=== PATIENT | female | born 1960 | race Two or more races ===

== ENCOUNTER 2017-05-06 21:13 | Emergency (ER) | payer OTHER ==
--- NOTE | 2017-05-06 22:31 | EDPHY ---
H & P Stated Complaint: pt c/o high bp/cifuentes/dizziness x 2 days Time Seen by Provider: 05/06/17 22:12 HPI/ROS: Family members provide Ukrainian interpretation per their request. They have declined superintendent operating services. HPI The patient presents with headache and elevated blood pressures for the last 2 days. The patient has a known history of hypertension for which she takes lisinopril. Her dose was changed, likely lowered in January of 2017. Her usual blood pressures are 130/85. However when she checked her blood pressure today at the drug store it was 166/95. Yesterday she noticed a global aching headache associated with redness of her conjunctiva. She thought this was a sign that her blood pressure was high. She did not have any vision changes, nausea or vomiting. She took Motrin and her headache improved. Today, she has developed right-sided occipital headache which is approximately 2 to 3/10 in severity. This is a throbbing pain. She does report she fell asleep on the couch prior to her pain starting and was flexing her neck toward his the right. She does have a history of subarachnoid hemorrhage in 2008.. REVIEW OF SYSTEMS Constitutional: No fever, no chills. Eyes: No discharge. ENT: No sore throat. Cardiovascular: No chest pain, no palpitations. Respiratory: No cough, no shortness of breath. Gastrointestinal: No abdominal pain, no vomiting. Genitourinary: No hematuria. Musculoskeletal: No back pain. Skin: No rashes. Neurological: Positive for headache. PMHx: Hypertension, history of subarachnoid hemorrhage Soc Hx: Lives at home with family PHYSICAL General Appearance: Alert, no distress Eyes: Pupils equal and round no pallor or injection ENT, Mouth: Mucous membranes moist Respiratory: There are no retractions, lungs are clear to auscultation Cardiovascular: Regular rate and rhythm Gastrointestinal: Abdomen is soft and non-tender, no masses, bowel sounds normal Neurological: A&O, cranial nerves 2-12 intact, 5/5 strength in upper and lower extremities which is symmetric, normal finger to nose test Skin: Warm and dry, no rashes Musculoskeletal: Neck is supple non tender Extremities: symmetrical, full range of motion Psychiatric: Patient is oriented X 3, there is no agitation Source: Patient Exam Limitations: No limitations - Medical/Surgical History Hx Asthma: No Hx Chronic Respiratory Disease: No Hx Diabetes: No Hx Cardiac Disease: Yes Hx Renal Disease: No Hx Cirrhosis: No Hx Alcoholism: No Hx HIV/AIDS: No Hx Splenectomy or Spleen Trauma: No Other PMH: ; r breast biopsy; 2009 cerebral aneurysm, hypertension - Social History Smoking Status: Former smoker Constitutional: Initial Vital Signs Temperature (C) 36.8 C 05/06/17 21:34 Heart Rate 80 05/06/17 21:34 Respiratory Rate 16 05/06/17 21:34 Blood Pressure 165/86 H 05/06/17 21:34 O2 Sat (%) 97 05/06/17 21:34 O2 Delivery Mode Room Air Allergies/Adverse Reactions: No Known Allergies Allergy (Verified 05/06/17 21:39) Home Medications: Medication Instructions Recorded Ibuprofen [Motrin (*)] 800 mg PO Q6 #15 tab 04/18/14 Lisinopril 05/06/17 VITAMIN B COMPLEX 05/06/17 VITAMIN D 05/06/17 Medical Decision Making - Diagnostics Imaging Results: Imaging Impressions Head CT 05/06/17 22:28 Impression: 1. Maxillary and sphenoid sinusitis. 2. Right frontal encephalomalacia. Findings discussed with Gardenia Spain MD 05/06/2017 at 22:59. Differential Diagnosis: 56-year-old female with history of hypertension, subarachnoid hemorrhage of uncertain etiology with no aneurysm identified in 2008, presents with slow onset of global headache yesterday, now with right-sided occipital headache. Blood pressures are elevated on arrival. Otherwise, exam is unremarkable. She has no neurologic deficits and headache is quite mild. Differential diagnosis includes elevated blood pressure, tension type headache, subarachnoid hemorrhage. In the emergency department, CT scan of brain without contrast was performed which showed no acute hemorrhage. Given symptoms for just the last several hours , I doubt that we are missing subarachnoid hemorrhage. Blood pressures improved while in the emergency department without any intervention. I have advised her to check her blood pressure on a daily basis if possible and follow up with her primary care doctor. She is in agreement with this plan. Departure - Departure Disposition: Home, Routine, Self-Care Clinical Impression: Headache, HTN (hypertension) Condition: Good Instructions: How to Take a Blood Pressure (ED), Chronic Hypertension (ED) Additional Instructions: Please check your blood pressures over the next few days. You should follow up with your primary care doctor in 1-2 days. Referrals: Cathy Lovell MD [Primary Care Provider] - As per Instructions
[2017-05-06 23:50] VITALS: O2SAT 95
[2017-05-06 23:51] VITALS: BP 122/67; PULSE 75; RESP 18; TEMP 98.4
== END 2017-05-06 23:54 | disposition home or self-care (01) ==
DX: R51 Headache (principal); I10 Essential (primary) hypertension; Z87.891 Personal history of nicotine dependence